=== PATIENT | female | born 2000 | race American Indian/Alaskan Native ===

== ENCOUNTER 2024-10-14 19:40 | Emergency (ER) | payer OTHER, SELFPAY ==
[~2024-10-14] VITALS: Ht 162.6 cm; Wt 71.4 kg
[2024-10-14 19:42] VITALS: BP 136/66; PULSE 115; RESP 20; TEMP 97.8; O2SAT 99
--- NOTE | 2024-10-14 20:08 | ED.PDOC ---
HPI Allergic reaction HPI Comments 24 year old female who came to ER for insect bite. 15 minutes prior to arrival, patient apparently got bitten by an ant, and she suddenly developed generalized pruritic rashes, associated with throat pain and swelling. Denies any wheezing. Chief Complaint: Insect Bite Time Seen by MD: 20:07 Reviewed Notes: Nurses Notes Home Meds Active Scripts Diphenhydramine Hcl (Benadryl Allergy) 25 Mg Cap, 1 CAP PO Q4HP PRN, #30 CAP 1 Refill Prov:ELIZABETH BUTTERFIELD MD 10/14/24 Hydrocortone (Hydrocortisone 1%) 1 Applic Ap, 1 APPLIC TOP BID PRN, #30 GRAMS Prov:ELIZABETH BUTTERFIELD MD 10/14/24 Prednisone (Prednisone) 20 Mg Tab, 20 MG PO BID for 5 Days, #10 TAB Prov:ELIZABETH BUTTERFIELD MD 10/14/24 Information Source: Patient Mode of Arrival: Ambulatory Severity: Moderate Rash: Moderate SOB: None Difficulty swallowing: Moderate Pruritus: Moderate Timing: Minutes Duration: Since onset Location: Generalized Exposed to: Animal Developed: Facial Swelling, Generalized erythema, Pruritus, Rash, Throat Swelliing Past Medical History PAST MEDICAL HISTORY: Denies Surgical History: Denies all surgeries INFORMATION SYSTEMS TECHNICIAN History: Denies all INFORMATION SYSTEMS TECHNICIAN Hx Family History Family History: Reviewed,noncontributory to illness Social History Smoker: Non-Smoker Alcohol: Denies ETOH Use Drugs: Denies Drug Use Lives In: Home Constitutional: denies: chills, diaphoresis, fatigue, fever, malaise, sweats, weakness, others EENTM: reports: throat pain, throat swelling; denies: blurred vision, double vision, ear bleeding, ear discharge, ear drainage, ear pain, ear ringing, eye pain, eye redness, hearing loss, mouth pain, mouth swelling, nasal discharge, nose bleeding, nose congestion, nose pain, photophobia, tearing, voice changes, others Respiratory: denies: cough, hemoptysis, orthopnea, SOB at rest, shortness of br eath, SOB with excertion, stridor, wheezing, others Cardiovascular: denies: chest pain, dizzy spells, diaphoresis, Dyspnea on exertion, edema, irregular heart beat, left arm pain, lightheadedness, palpitations, PND, syncope, others Gastrointestinal: denies: abdomen distended, abdominal pain, blood streaked bowels, constipated, diarrhea, dysphagia, difficulty swallowing, hematemesis, melena, nausea, poor appetite, poor fluid intake, rectal bleeding, rectal pain, vomiting, others Genitourinary: denies: abnormal vagina bleeding, burning, dyspareunia, dysuria, flank pain, frequency, hematuria, incontinence, pain, , vagina discharge, urgency, others Neurological: denies: dizziness, fainting, headache, left sided numbness, left sided weakness, numbness, paresthesia, pre-existing deficit, right sided numbness, right sided weakness, seizure, speech problems, tingling, tremors, weakness, others Musculoskeletal: denies: back pain, gout, joint pain, joint swelling, muscle pain, muscle stiffness, neck pain, others Integumetry: denies: bruises, change in color, change in hair/nails, dryness, laceration, lesions, lumps, rash, wounds, others Allergic/Immunocompromised: reports: Hives, Itching; denies: Difficulty Healing, Frequent Infections, others Hematologic/Lymphatic: denies: anemia, blood clots, easy bleeding, easy bruising, swollen glands, others Endocrine: denies: excessive hunger, excessive sweating, excessive thirst, excessive urination, flushing, intolerance to cold, intolerance to heat, unexplained weight gain, unexplained weight loss, others Psychiatric: denies: anxiety, bipolar disorder, depression, hopeless, panic disorder, schizophrenia, sleepless, suicidal, others Physical Exam General Appearance: No Apparent Distress, Normal HEENT: Normal ENT Inspection, Pharynx Normal, TMs Normal Neck: Full Range of Motion, Non-Tender, Normal, Normal Inspection Respiratory: Chest Non-Tender, Lungs Clear, No Accessory Muscle Use, No Respiratory Distress, Normal Breath Sounds Cardiovascular: No Edema, No JVD, No Murmur, No Gallop, Normal Peripheral Pulses, Regular Rate/Rhythm Breast Exam: Deferred Gastrointestinal: No Organomegaly, Non Tender, No Pulsatile Mass, Normal Bowel Sounds, Soft Genitalia: Deferred Pelvic: Deferred Rectal: Deferred Extremities: No calf tenderness, Normal capillary refill, Normal inspection, Normal range of motion, Non-tender, No pedal edema Musculoskeletal : Apperance: Normal Neurologic: Alert, district recruiter II-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 Was a procedure done?: No Differential diagnosis (all) Differential Diagnosis: Anaphylaxis, Contact Dermatitis, Urticaria X-Ray, Labs, Meds, VS Vital Signs Date Time Temp Pulse Resp B/P (MAP) Pulse Ox O2 Delivery O2 Flow Rate FiO2 10/14/24 19:42 97.8 115 20 136/66 99 97.8 Current Medications Medications (Trade) Dose Ordered Sig/Radha Route Start Time Stop Time Status Last Admin Epinephrine HCl 0.3 mg ONCE ONCE SC 10/14/24 20:15 10/14/24 20:16 DC 10/14/24 20:32 Diphenhydramine HCl (Benadryl Injection) 50 mg ONCE ONCE IM 10/14/24 20:15 10/14/24 20:16 DC 10/14/24 20:32 Famotidine (Pepcid Tablet) 40 mg ONCE ONCE PO 10/14/24 20:15 10/14/24 20:16 DC 10/14/24 20:31 Prednisone 60 mg ONCE ONCE PO 10/14/24 20:15 10/14/24 20:16 DC 10/14/24 20:31 Time of 1ST Reevaluation: 20:04 Reevaluation 1ST: Unchanged Patient Education/Counseling: Diagnosis, Treatment Family Education/Counseling: No Family Present SEPSIS Sepsis Screen Date sepsis recognized/suspect: Oct 14, 2024 Time Sepsis recognized/suspect: 1946 Recent Procedure: No On Antibiotic Therapy: No Respiratory Rate >20: No Heart Rate >90: No Temp<36 C (96.8 F) or >38.3 C: No SBP <90 or MAP <65 mmHG: No New Acute Mental Status Change: No Is the patient on CPAP, BIPAP,: No Vital Signs Date Time Temp Pulse Resp B/P (MAP) Pulse Ox O2 Delivery O2 Flow Rate FiO2 10/14/24 19:42 97.8 115 20 136/66 99 97.8 Medications Medications Dose Ordered Sig/Radha Route Start Time Stop Time Status Last Admin Dose Admin Diphenhydramine HCl 50 mg ONCE ONCE IM 10/14/24 20:15 10/14/24 20:16 DC 10/14/24 20:32 Epinephrine HCl 0.3 mg ONCE ONCE SC 10/14/24 20:15 10/14/24 20:16 DC 10/14/24 20:32 Famotidine 40 mg ONCE ONCE PO 10/14/24 20:15 10/14/24 20:16 DC 10/14/24 20:31 Prednisone 60 mg ONCE ONCE PO 10/14/24 20:15 10/14/24 20:16 DC 10/14/24 20:31 Departure 1 Departure Time of Disposition: 22:00 Impression: Primary Impression: Allergic reaction Disposition: HOME / SELF CARE / HOMELESS Condition: Stable e-Prescriptions Diphenhydramine Hcl (Benadryl Allergy) 25 Mg Cap 1 CAP PO Q4HP PRN, #30 CAP 1 Refill Prov: ELIZABETH BUTTERFIELD MD 10/14/24 Hydrocortone (Hydrocortisone 1%) 1 Applic Ap 1 APPLIC TOP BID PRN, #30 GRAMS Prov: ELIZABETH BUTTERFIELD MD 10/14/24 Prednisone (Prednisone) 20 Mg Tab 20 MG PO BID for 5 Days, #10 TAB Prov: ELIZABETH BUTTERFIELD MD 10/14/24 Discharged With: Self Critical Care Note Critical Care Time?: No Stability Stability form required: No Heart Score Heart Score: Heart Score Response (Comments) Value History N/A 0 EKG N/A 0 Age N/A 0 Risk Factors N/A 0 Troponin N/A 0 Total 0 I personally scribed for ELIZABETH BUTTERFIELD MD ([email or web address]) on 10/14/24 at 20:08. Electronically submitted by Eyal Lazaro ([email or web address]). ELIZABETH BUTTERFIELD MD Oct 14, 2024 20:08
[2024-10-14] MEDS: FAMOTIDINE 20 MG TAB PO ONE (20:31)
[2024-10-14] MEDS: predniSONE 20 MG TAB PO ONE (20:31)
[2024-10-14] MEDS: diphenhdrAMINE HCL 50 MG/1 ML VL IM ONE (20:32)
[2024-10-14] MEDS ORDERED: DIPH25CA66 PO (21:33)
[2024-10-14] MEDS ORDERED: HYD1TP TOP (21:33)
[2024-10-14] MEDS ORDERED: PRED20TA2 PO (21:33)
== END 2024-10-14 23:00 | disposition home or self-care (01) ==
LOC: ER 19:40
DX: L29.9 Pruritus, unspecified (principal); T78.40XA Allergy, unspecified, initial encounter; W57.XXXA Bitten or stung by nonvenomous insect and other nonvenomous arthropods, initial encounter
CPT/HCPCS: 96372; 99284; J0169; J1200; J7512

== ENCOUNTER 2024-11-12 15:12 | Emergency (ER) | payer SELFPAY ==
[~2024-11-12] VITALS: Ht 162.6 cm; Wt 72.4 kg
[~2024-11-12 15:12] MED LIST: DIPH25CA66 PO; HYD1TP TOP; PRED20TA2 PO
[2024-11-12 15:16] VITALS: BP 126/68; PULSE 81; RESP 18; TEMP 98.6; O2SAT 98
--- NOTE | 2024-11-12 16:01 | ED.PDOC ---
STREET SWEEPER HPI Comments A 24 YEAR OLD FEMALE PRESENTS TO THE ED WITH COMPLAINT OF VAGINAL SPOTTING DURING . PATIENT STATES SHE IS CURRENTLY ABOUT 6 WEEKS AND BEGAN TO EXPERIENCE VAGINAL SPOTTING YESTERDAY NIGHT. PATIENT NOTES HE ALSO HAS MILD PELVIC CRAMPING. PATIENT DENIES DYSURIA, HEMATURIA, VAGINAL DISCHARGE, FEVER, CHILLS, SHORTNESS OF BREATH, CHEST PAIN, ABDOMINAL PAIN, NAUSEA, VOMITING, HEADACHE, OR OTHER COMPLAINTS. NO OTHER SYMPTOMS OR MODIFYING FACTORS AT THIS TIME. PATIENT IS ALERT, ORIENTED X 4, AND HAS STEADY GAIT. Chief Complaint: Vaginal Bleed Time Seen by MD: 15:33 Reviewed Notes: Nurses Notes, Medications, Allergies Allergies: Coded Allergies: NO KNOWN ALLERGIES (Unverified , 11/12/24) Home Meds Active Scripts Diphenhydramine Hcl (Benadryl Allergy) 25 Mg Cap, 1 CAP PO Q4HP PRN, #30 CAP 1 Refill Prov:ELIZABETH BUTTERFIELD MD 10/14/24 Hydrocortone (Hydrocortisone 1%) 1 Applic Ap, 1 APPLIC TOP BID PRN, #30 GRAMS Prov:ELIZABETH BUTTERFIELD MD 10/14/24 Prednisone (Prednisone) 20 Mg Tab, 20 MG PO BID for 5 Days, #10 TAB Prov:ELIZABETH BUTTERFIELD MD 10/14/24 Information Source: Patient Mode of Arrival: Ambulatory Timing: Days Prehospital treatment: None Severity: Mild Vaginal Discharge: None Vaginal Lesions: None Bleeding Quality: Bright Red Vaginal Mass: None Onset Of Mass/Bleeding: Spontaneous Sexual Activity: Last Consensual Titanic: Unknown Control: None History of: Current Blood Type: Unknown Symptoms of Possible : None Associated Signs and Symptoms: Vaginal Bleeding Past Medical History PAST MEDICAL HISTORY: Denies Surgical History: Denies all surgeries 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: 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 all ROCKET PROPELLANT PLANT SUPERVISOR Hx Family History Family History: Reviewed,noncontributory to illness Social History Smoker: Non-Smoker Alcohol: Denies ETOH Use Drugs: Denies Drug Use Lives In: Home Constitutional: denies: chills, diaphoresis, fatigue, fever, malaise, sweats, weakness, others EENTM: denies: blurred vision, double vision, ear bleeding, ear discharge, ear drainage, ear pain, ear ringing, eye pain, eye redness, hearing loss, mouth pain, mouth swelling, nasal discharge, nose bleeding, nose congestion, nose pain, photophobia, tearing, throat pain, throat swelling, voice changes, others Respiratory: denies: cough, hemoptysis, orthopnea, SOB at rest, shortness of breath, SOB with excertion, stridor, wheezing, others Cardiovascular: denies: chest pain, dizzy spells, diaphoresis, Dyspnea on exertion, edema, irregular heart beat, left arm pain, lightheadedness, palpitations, PND, syncope, others Gastrointestinal: denies: abdomen distended, abdominal pain, blood streaked bowels, constipated, diarrhea, dysphagia, difficulty swallowing, hematemesis, melena, nausea, poor appetite, poor fluid intake, rectal bleeding, rectal pain, vomiting, others Genitourinary: reports: abnormal vagina bleeding (VAGINAL SPOTTING), pain (PELVIC CRAMPING), ; denies: burning, dyspareunia, dysuria, flank pain, frequency, hematuria, incontinence, vagina discharge, urgency, others Neurological: denies: dizziness, fainting, headache, left sided numbness, left sided weakness, numbness, paresthesia, pre-existing deficit, right sided numbness, right sided weakness, seizure, speech problems, tingling, tremors, weakness, others Musculoskeletal: denies: back pain, gout, joint pain, joint swelling, muscle pain, muscle stiffness, neck pain, others Integumetry: denies: bruises, change in color, change in hair/nails, dryness, laceration, lesions, lumps, rash, wounds, others Allergic/Immunocompromised: denies: Difficulty Healing, Frequent Infections, Hives, Itching, others Hematologic/Lymphatic: denies: anemia, blood clots, easy bleeding, easy bruising, swollen glands, others Endocrine: denies: excessive hunger, excessive sweating, excessive thirst, excessive urination, flushing, intolerance to cold, intolerance to heat, unexplained weight gain, unexplained weight loss, others Psychiatric: denies: anxiety, bipolar disorder, depression, hopeless, panic disorder, schizophrenia, sleepless, suicidal, others All Other Systems: Reviewed and Negative Physical Exam General Appearance: No Apparent Distress, Normal HEENT: Normal ENT Inspection, PERRL/EOMI, Pharynx Normal, TMs Normal Neck: Full Range of Motion, Non-Tender, Normal, Normal Inspection Respiratory: Chest Non-Tender, Lungs Clear, No Accessory Muscle Use, No Respiratory Distress, Normal Breath Sounds Cardiovascular: No Edema, No JVD, No Murmur, No Gallop, Normal Peripheral Puls es, Regular Rate/Rhythm Breast Exam: Deferred Gastrointestinal: No Organomegaly, Non Tender, No Pulsatile Mass, Normal Bowel Sounds, Soft Genitalia: Deferred Pelvic: Normal External Exam, Other (VAGINAL SPOTTING, NO VAGINAL BLEEDING AND BLOOD CLOTS. 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 Was a procedure done?: No Differential Diagnosis (ROCKET PROPELLANT PLANT SUPERVISOR) Vaginal Bleeding: - Incomplete, - Threatened, Ectopic , UTI, Vaginitis Mass / Lesion: N/A Vaginal Discharge: N/A X-Ray, Labs, Meds, VS Vital Signs Date Time Temp Pulse Resp B/P (MAP) Pulse Ox O2 Delivery O2 Flow Rate FiO2 11/12/24 15:16 98.6 81 18 126/68 98 98.6 Lab Test 11/12/24 15:55 11/12/24 15:53 Range/Units White Blood Count 10.9 H 4.4-10.8 10^3/uL Red Blood Count 4.46 4.0-5.20 10^6/uL Hemoglobin 13.4 12.2-16.2 g/dL Hematocrit 39.2 36.0-46.0 % Mean Corpuscular Volume 87.8 80.0-100.0 fL Mean Corpuscular Hemoglobin 29.9 28.0-32.0 pg Mean Corpuscular Hemoglobin Concent 34.1 32.0-36.0 g/dL Red Cell Distribution Width 13.1 11.8-14.3 % Platelet Count 337 140-450 10^3/uL Mean Platelet Volume 7.2 6.9-10.8 fL Neutrophils (%) (Auto) 72.6 37.0-80.0 % Lymphocytes (%) (Auto) 19.2 10.0-50.0 % Monocytes (%) (Auto) 6.5 0.0-12.0 % Eosinophils (%) (Auto) 1.5 0.0-7.0 % Basophils (%) (Auto) 0.2 0.0-2.0 % Neutrophils # (Auto) 7.9 1.6-8.6 10 ^3/uL Lymphocytes # (Auto) 2.1 0.4-5.4 10 ^3/uL Monocytes # (Auto) 0.7 0-1.3 10 ^3/uL Eosinophils # (Auto) 0.2 0-0.8 10 ^3/uL Basophils # (Auto) 0 0-0.2 10 ^3/uL Nucleated Red Blood Cells 0.1 % Beta HCG, Quantitative 96471.6 H 1.5-4.2 mIU/mL Urine Color Light-yellow Yellow Urine Clarity Clear Clear Urine pH 6.0 5.0-9.0 Urine Specific [place] 1.024 1.001-1.035 Urine Protein Negative Negative Urine Ketones Negative Negative Urine Blood 2+ H Negative /uL Urine Nitrite Negative Negative Urine Bilirubin Negative Negative Urine Urobilinogen Normal Negative mg/dL Urine Leukocyte Esterase Negative Negative /uL Urine RBC 13 0 - 4 /hpf Urine Microscopic WBC 2 0-5 /HPF Urine Squamous Epithelial Cells Few <5 /hpf Urine Bacteria None seen None Seen /hpf Urine Mucus Few None Seen Urine Glucose Normal Normal mg/dL PATIENT: SALBADOR GARCIAACCT: [id number]: [id number] : 2000 LOC: ER ROOM / BED: / AGE / SEX: 24 / F ADM STATUS: [facility] ER SERVICE [id number] ORDERING PHYSICIAN: BOOGIE TINEO PROCEDURE(s): OB4US - OB ULTRASOUND COMP LESS 14WKS REASON: VAGINAL SPOTTING, 6 WEEKS ORDER NUMBER(s): [id number], ACCESSION NUMBER(s): [id number] INDICATION: VAGINAL SPOTTING, 6 WEEKS TECHNIQUE: Multiple real-time grayscale transabdominal transvaginal sonographic images along with color and duplex Doppler of the uterus and ovaries were obtained. COMPARISON: None FINDINGS: The uterus measures 9.8 x 5.6 x 7 cm. The endometrial stripe endometrial canal contains a gestational sac and pole.. The right ovary measures 3.3 x 2.2 x 2.6 cm. There is an anechoic mass in the right ovary measuring 1.6 x 1.7 x 1.9 cm likely a follicle. The left ovary measures 2.6 x 1.2 by 2 cm. Volume of the left ovary is 3.2 cc. Subsequent color and duplex Doppler interrogation of the ovaries demonstrated symmetric vascular flow to both ovaries, though this does not exclude the possibility of torsion due to the dual blood supply. Gestational sac: 2.3 cm consistent with 7 weeks 0 days. Yolk sac is visualized. [place]-rump length 0.74 cm consistent with 6 weeks 4 days. heart rate 134 beats per minute JAYNE 07/02/2025. IMPRESSION: 1. 6.6 cm intrauterine ; JAYNE 07/02/2025 2. FHR: 134 beats per minute 3. Luteal cyst right ovary ATED BY: CLINT MUÑOZ Jr., DO DICTATED DATE/TIME: 11/12/241725 SIGNED BY: CLINT MUÑOZ Jr., SIGNED DATE/TIME: 11/12/241725 CC: X-Ray, Labs, Meds, VS Comment EXTERNAL MEDICAL RECORDS REVIEWED: [NONE] INDEPENDENT HISTORIANS: [NONE] SOCIAL DETERMINANTS OF HEALTH: [NONE] LABS ORDERED: CBC, UA, URINE , BETA HCG QUANT REVIEWED AND INTERPRETED RESULTS: BLOOD 2+, BHCG QUANT 98,259.6 IMAGING ORDERED: US OB < 14 WKS: [INTERPRETED BY U.S. TECH. SINGLE LIVE IUP VISUALIZED MEASURING 6 WEEKS AND 6 DAYS. FHR OF 134 BEATS PER MINUTE. NO ABNORMALITY SEEN AT THIS TIME. PENDING RADIOLOGY REVIEW.] TREATMENTS ORDERED: NONE PROCEDURES PERFORMED: NONE CRITICAL CARE TIME: NONE I HAVE DISCUSSED THE PATIENT WITH THE ATTENDING PHYSICIAN DR. BRO AND HE AGREES WITH THE PATIENT'S PLAN OF CARE AND DISPOSITION. BASED ON HISTORY OF PRESENT ILLNESS, AND PHYSICAL EXAM, PATIENT WILL BE DISCHARGED HOME. SHARED DECISION MAKING: DISCUSSED WITH PATIENT THAT THEIR WORKUP WAS NORMAL. PATIENT INSTRUCTED TO FOLLOW UP WITH PRIMARY CARE PROVIDER IN 1-2 DAYS FOR RE- EVALUATION OF SYMPTOMS. PATIENT VERBALIZES UNDERSTANDING TO RETURN TO ED FOR NEW OR WORSENING SYMPTOMS OR IF FOLLOW UP WITH PCP CANNOT BE OBTAINED. PATIENT FEELS COMFORTABLE GOING HOME AT THIS TIME. ALL QUESTIONS ADDRESSED AT TIME OF DISCHARGE. Images Reviewed?: Images reviewed and evaluated by me Time of 1ST Reevaluation: 17:20 Reevaluation 1ST: Improved Patient Education/Counseling: Diagnosis, Treatment, Need For Follow Up Family Education/Counseling: Diagnosis, Treatment, Need For Follow Up Medical Screening: No EMC Exist At This Time Departure 1 Departure Time of Disposition: 17:20 Impression: Primary Impression: Vaginal spotting Additional Impression: Threatened in first trimester Disposition: 01 HOME / SELF CARE / HOMELESS Condition: Stable Additional Instructions: FOLLOW-UP WITH PCP AND STREET SWEEPER IN 1 TO 2 DAYS. TAKE MEDICATIONS PRESCRIBED. RETURN TO ED FOR ANY NEW OR WORSENING SYMPTOMS. Discharged With: Self Critical Care Note Critical Care Time?: No Stability Stability form required: No I personally scribed for BOOGIE TINEO ([email or web address]) on 11/12/24 at 16:01. Electronically submitted by Parker Ty ([email or web address]). I personally scribed for BOOGIE TINEO ([email or web address]) on 11/12/24 at 17:10. Electronically submitted by Parker Ty ([email or web address]). BOOGIE TINEO Nov 12, 2024 16:01
[2024-11-12 16:04] LABS: Urine Protein, UAD Negative (Negative)
[2024-11-12 16:07] LABS: Hematocrit 39.2 % (36.0-46.0); Hemoglobin 13.4 g/dL (12.2-16.2); Mean Corpuscular Hemoglobin 29.9 pg (28.0-32.0); Mean Corpuscular Volume 87.8 fL (80.0-100.0); Nucleated Red Blood Cells % 0.1 %
--- NOTE | 2024-11-12 17:28 | DVH ---
INDICATION: VAGINAL SPOTTING, 6 WEEKS TECHNIQUE: Multiple real-time grayscale transabdominal transvaginal sonographic images along with col or and duplex Doppler of the uterus and ovaries were obtained. COMPARISON: None FINDINGS: The uterus measures 9.8 x 5.6 x 7 cm. The endometrial stripe endometrial canal contains a g estational sac and pole.. The right ovary measures 3.3 x 2.2 x 2.6 cm. There is an anechoic mass in the right ovary measuring 1 .6 x 1.7 x 1.9 cm likely a follicle. The left ovary measures 2.6 x 1.2 by 2 cm. Volume of the left ovary is 3.2 cc. Subsequent color and duplex Doppler interrogation of the ovaries demonstrated symmetric vascular flow to both ovaries, though this does not exclude the possibility of torsion due to the dual blood suppl y. Gestational sac: 2.3 cm consistent with 7 weeks 0 days. Yolk sac is visualized. [place]-rump length 0.74 cm consistent with 6 weeks 4 days. heart rate 134 beats per minute JAYNE 07/02/2025. IMPRESSION: 1. 6.6 cm intrauterine ; JAYNE 07/02/2025 2. FHR: 134 beats per minute 3. Luteal cyst right ovary
== END 2024-11-12 17:28 | disposition home or self-care (01) ==
LOC: ER 15:21
DX: O20.0 Threatened abortion (principal); Z3A.01 Less than 8 weeks gestation of pregnancy
CPT/HCPCS: 36415; 76801; 76817; 81001; 84702; 85025

== ENCOUNTER 2024-12-06 18:47 | Emergency (ER) | payer SELFPAY ==
[~2024-12-06] VITALS: Ht 160 cm; Wt 70.0 kg
[2024-12-06 19:21] LABS: Hematocrit 38.7 % (36.0-46.0); Hemoglobin 13.3 g/dL (12.2-16.2); Mean Corpuscular Hemoglobin 29.5 pg (28.0-32.0); Mean Corpuscular Volume 86.0 fL (80.0-100.0); Nucleated Red Blood Cells % 0.0 %
[2024-12-06 19:23] LABS: Chloride 105 mmol/L (98-107); Potassium 3.9 mmol/L (3.5-5.1); Sodium 138 mmol/L (136-145)
[2024-12-06 19:24] LABS: Anion Gap 9 (5-15); Calcium 9.4 mg/dL (8.7-10.4); Carbon Dioxide 24 mmol/L (20-31)
[2024-12-06 19:29] LABS: BUN/Creatinine Ratio 10.9 (10.0-20.0); Glucose 78 mg/dL (74-106)
[2024-12-06 19:34] LABS: Blood Urea Nitrogen 6 mg/dL (9-23)
--- NOTE | 2024-12-06 19:46 | DVH ---
CLINICAL HISTORY: Vaginal Bleeding during TECHNIQUE: Ultrasound examination of the female pelvis was performed transabdominally. COMPARISON: US OB ULTRASOUND COMP LESS 14WKS on DOS: 11/12/24, US OB TRANS VAGINAL US on DOS: 11/12/24 FINDINGS: The uterus measures 13.5 x 5.4 x 8.6 CM. The myometrial echotexture is homogenous. No focal myometri al abnormality is seen. There is a single live intrauterine with a crown-rump length of 4.1 cm, which correlates wi th gestational age of 11 weeks 0 days. The heart rate is 166 beats per minute. The sac shape a ppears appropriate as is the admitted with fluid volume visually. Is a 1.6 cm subchorionic bleed. The right ovary measures 3.1 x 1.9 x 2.2 cm. The left ovary measures 3.8 x 1.9 x 3.2 cm. Normal color doppler flow and vascular waveforms. There is no free fluid. IMPRESSION: Single alive intrauterine dated at 11 weeks 0 days by current ultrasound biometry. 1.6 cm subchorionic bleed.
--- NOTE | 2024-12-06 19:50 | ED.PDOC ---
History of Present Illness HPI Comments 24 y/o F presents with c/c of abnormal vaginal bleeding with associated mild abdominal cramping. Patient reports on being 10x weeks , with her first , currently ([id number]) and first upcoming [facility] appointment in December 2024. She states on spotting bleeding onset when using the bathroom, earlier, today, and describes it being bright red and, slightly, heavier than a regular period. No endorsed recent injuries, sexual intercourse, or further pertinent history or events. Denies on having any nausea, vomiting, urinary problems, lightheadedness, or further acute symptoms. REVIEW OF SYSTEMS: General: No fever, no chills, or fatigue HEENT: No sore throat, no earache, no congestion, no neck pain. Cardiac: No chest pain. No palpitations. Lungs: No shortness of breath, no cough. GI: Abdominal pain. No nausea, no vomiting, no diarrhea, no constipation : Abnormal vaginal bleeding. No dysuria, frequency, or urgency. No hematuria. Musculoskeletal: No joint pain , no joint swelling, no extremity edema. Skin: No rash, no itching. Neuro: No headache, no dizziness, no weakness PHYSICAL EXAM: General: Awake, alert and oriented. No acute distress. Skin: Skin in warm, dry and intact. Appropriate color for ethnicity. HEENT: The head is normocephalic and atraumatic. Conjunctivae are clear without exudates or hemorrhage. Sclera is non-icteric. EOM are intact. No signs of nystagmus. Eyelids are normal in appearance without swelling or lesions. Oral mucosa is pink and moist Neck: The neck is supple with normal range of motion. No JVD. Cardiac: Heart rate and rhythm are normal. No murmurs, gallops, or rubs are auscultated. Respiratory: No signs of respiratory distress. Lung sounds are clear in all lobes bilaterally without rales, rhonchi, or wheezes. Abdominal: Mild suprapubic abdominal tenderness. Remaining abdomen is soft, non-tender without distention, guarding or rigidity. Bowel sounds are present and normoactive in all four quadrants. Extremities: Upper and lower extremities are atraumatic in appearance without deformity or edema. Neurological: The patient is awake, alert and oriented to person, place, and time with normal speech. Speech is clear. There is no facial asymmetry. Psychiatric: Appropriate mood and affect. Good judgement and insight. Chief Complaint: Vaginal Bleed Time Seen by MD: 18:59 Reviewed Notes: Nurses Notes, Medications, Allergies Allergies: Coded Allergies: NO KNOWN ALLERGIES (Unverified , 11/12/24) Home Meds Active Scripts Diphenhydramine Hcl (Benadryl Allergy) 25 Mg Cap, 1 CAP PO Q4HP PRN, #30 CAP 1 Refill Prov:ELIZABETH BUTTERFIELD MD 10/14/24 Hydrocortone (Hydrocortisone 1%) 1 Applic Ap, 1 APPLIC TOP BID PRN, #30 GRAMS Prov:ELIZABETH BUTTERFIELD MD 10/14/24 Prednisone (Prednisone) 20 Mg Tab, 20 MG PO BID for 5 Days, #10 TAB Prov:ELIZABETH BUTTERFIELD MD 10/14/24 Information Source: Patient Mode of Arrival: Ambulatory Severity: Moderate Timing: Hours Duration: Since onset Prehospital treatment: None Past Medical History PAST MEDICAL HISTORY: Denies Surgical History: Denies all surgeries DIRECTOR OF CLAIMS History: Denies all DIRECTOR OF CLAIMS Hx Family History Family History: Reviewed,noncontributory to illness Social History Smoker: Non-Smoker Alcohol: Denies ETOH Use Drugs: Denies Drug Use Lives In: Home Was a procedure done? Was a procedure done?: No Differential Dx Considerations may include: Differential diagnoses considered include but are not limited to threatened , incomplete , missed , ectopic , ruptured ectopic , urinary tract infection, subchorionic hemorrhage, abnormal uterine bleeding, STI, trauma, vaginitis, other. X-Ray, Labs, Meds, VS Vital Signs Date Time Temp Pulse Resp B/P (MAP) Pulse Ox O2 Delivery O2 Flow Rate FiO2 12/06/24 21:20 Room Air* 0 21 12/06/24 21:19 97.7 78 12 123/77 (92) 98 97.7 12/06/24 18:48 98.7 97 18 132/79 97 98.7 Lab Test 12/06/24 20:20 12/06/24 19:05 Range/Units Urine Color Colorless Yellow Urine Clarity Clear Clear Urine pH 7.5 5.0-9.0 Urine Specific [place] 1.006 1.001-1.035 Urine Protein Negative Negative Urine Ketones Negative Negative Urine Blood Negative Negative /uL Urine Nitrite Negative Negative Urine Bilirubin Negative Negative Urine Urobilinogen Normal Negative mg/dL Urine Leukocyte Esterase Negative Negative /uL Urine RBC 1 0 - 4 /hpf Urine Microscopic WBC < 1 0-5 /HPF Urine Squamous Epithelial Cells Few <5 /hpf Urine Bacteria None seen None Seen /hpf Urine Glucose Normal Normal mg/dL Urine Test Positive Negative Chlamydia trachomatis ([facility]) Pending Neisseria gonorrhoeae ([facility]) Pending White Blood Count 11.0 H 4.4-10.8 10^3/uL Red Blood Count 4.51 4.0-5.20 10^6/uL Hemoglobin 13.3 12.2-16.2 g/dL Hematocrit 38.7 36.0-46.0 % Mean Corpuscular Volume 86.0 80.0-100.0 fL Mean Corpuscular Hemoglobin 29.5 28.0-32.0 pg Mean Corpuscular Hemoglobin Concent 34.3 32.0-36.0 g/dL Red Cell Distribution Width 13.1 11.8-14.3 % Platelet Count 321 140-450 10^3/uL Mean Platelet Volume 7.7 6.9-10.8 fL Neutrophils (%) (Auto) 72.3 37.0-80.0 % Lymphocytes (%) (Auto) 19.9 10.0-50.0 % Monocytes (%) (Auto) 6.0 0.0-12.0 % Eosinophils (%) (Auto) 1.5 0.0-7.0 % Basophils (%) (Auto) 0.3 0.0-2.0 % Neutrophils # (Auto) 7.9 1.6-8.6 10 ^3/uL Lymphocytes # (Auto) 2.2 0.4-5.4 10 ^3/uL Monocytes # (Auto) 0.7 0-1.3 10 ^3/uL Eosinophils # (Auto) 0.2 0-0.8 10 ^3/uL Basophils # (Auto) 0 0-0.2 10 ^3/uL Nucleated Red Blood Cells 0.0 % Sodium Level 138 136-145 mmol/L Potassium Level 3.9 3.5-5.1 mmol/L Chloride Level 105 98-107 mmol/L Carbon Dioxide Level 24 20-31 mmol/L Anion Gap 9 5-15 Blood Urea Nitrogen 6 L 9-23 mg/dL Creatinine 0.55 0.550-1.02 mg/dL Glomerular Filtration Rate Calc 131 >90 mL/min BUN/Creatinine Ratio 10.9 10.0-20.0 Serum Glucose 78 74-106 mg/dL Calcium Level 9.4 8.7-10.4 mg/dL ORDERING PHYSICIAN: DIONNE BROWN MD PROCEDURE(s): OB4US - OB ULTRASOUND COMP LESS 14WKS REASON: Vaginal Bleeding during ORDER NUMBER(s): [id number], ACCESSION NUMBER(s): [id number] CLINICAL HISTORY: Vaginal Bleeding during TECHNIQUE: Ultrasound examination of the female pelvis was performed transabdominally. COMPARISON: US OB ULTRASOUND COMP LESS 14WKS on DOS: 11/12/24, US OB TRANS VAGINAL US on DOS: 11/12/24 FINDINGS: The uterus measures 13.5 x 5.4 x 8.6 CM. The myometrial echotexture is homogenous. No focal myometrial abnormality is seen. There is a single live intrauterine with a crown-rump length of 4.1 cm, which correlates with gestational age of 11 weeks 0 days. The heart rate is 166 beats per minute. The sac shape appears appropriate as is the admitted with fluid volume visually. Is a 1.6 cm subchorionic bleed. The right ovary measures 3.1 x 1.9 x 2.2 cm. The left ovary measures 3.8 x 1.9 x 3.2 cm. Normal color doppler flow and vascular waveforms. There is no free fluid. IMPRESSION: Single alive intrauterine dated at 11 weeks 0 days by current u ltrasound biometry. 1.6 cm subchorionic bleed. Time of 1ST Reevaluation: 19:19 Reevaluation 1ST: Unchanged Patient Education/Counseling: Treatment, Need For Follow Up Family Education/Counseling: No Family Present SEPSIS Sepsis Screen Date sepsis recognized/suspect: Dec 06, 2024 Time Sepsis recognized/suspect: 1847 Recent Procedure: No On Antibiotic Therapy: No Respiratory Rate >20: No Heart Rate >90: No Temp<36 C (96.8 F) or >38.3 C: No SBP <90 or MAP <65 mmHG: No New Acute Mental Status Change: No Is the patient on CPAP, BIPAP,: No Physician Orders Chlamydia/Gc Amplification (12/06/24 19:00) Ob Ultrasound Comp Less 14wks (12/06/24 19:00) Vital Signs Date Time Temp Pulse Resp B/P (MAP) Pulse Ox O2 Delivery O2 Flow Rate FiO2 12/06/24 21:20 Room Air* 0 21 12/06/24 21:19 97.7 78 12 123/77 (92) 98 97.7 12/06/24 18:48 98.7 97 18 132/79 97 98.7 Laboratory Tests Test 12/06/24 19:05 White Blood Count 11.0 10^3/uL (4.4-10.8) H Departure 1 Departure Time of Disposition: 20:12 Impression: Primary Impression: Vaginal bleeding during Additional Impression: Subchorionic hemorrhage Disposition: HOME / SELF CARE / HOMELESS Condition: Stable Additional Instructions: ED DISCHARGE INSTRUCTIONS Instructions: Please read all instructions provided in this packet carefully. Although you have been discharged from the Emergency Department, this does not mean that you have a "clean bill of health". []No definitive diagnosis for your symptoms has been made today. It is possible that you are in the process of developing a serious illness. This is why you must return to the ED without fail if any new or worsening symptoms (especially if your symptoms include chest pain, trouble breathing, abdominal pain, fever, headache, confusion, trouble seeing, or trouble walking) It is also very important that you see a primary care provider (PCP) within the next 3-5 days to follow up. Follow up with the agency appointments supervisor within 1-3 days. You will need repeat ultrasound. A copy of your ultrasound report is included below. Please take this to your next appointment If you are unable to get an appointment, return to the ED for re-evaluation. Subchorionic Hemorrhage A subchorionic hematoma or hemorrhage is bleeding between the wall of the uterus and one of the sacs (chorion) that surrounds the embryo inside the uterus. It is a common cause of bleeding in early . The main symptom is vaginal bleeding. But some people don't have symptoms. They may find out they have a hematoma during an ultrasound test. In most cases, the bleeding goes away on its own. Most people go on to have a healthy baby. But in some cases, the bleeding is a sign of a miscarriage or other problem with the . Your doctor may want to do a follow-up ultrasound. Overview It's common to have some vaginal spotting when you are . In some cases, the bleeding isn't serious. And there aren't any more problems with the . But sometimes bleeding is a sign of a more serious problem. This is more common if the bleeding is heavy or painful. Examples of more serious problems include miscarriage, an ectopic , and a problem with the placenta. You may have to see your doctor again to be sure everything is okay. You may also need more tests to find the cause of the bleeding. Home treatment may be all you need. But it depends on what is causing the bleeding. Be sure to tell your doctor if you have any new symptoms or if your symptoms get worse. The doctor has checked you carefully, but problems can develop later. If you notice any problems or new symptoms, get medical treatment right away. Follow-up care is a reyes part of your treatment and safety. Be sure to make and go to all appointments, and call your doctor if you are having problems. It's also a good idea to know your test results and keep a list of the medicines you take. How can you care for yourself at home? If your doctor prescribed medicines, take them exactly as directed. Call your doctor if you think you are having a problem with your medicine. Do not have vaginal sex until your doctor says it's okay. Do not put anything in your vagina until your doctor says it's okay. Ask your doctor about other activities you can or can't do. Get a lot of rest. Being can make you tired. Do not use nonsteroidal anti-inflammatory drugs (NSAIDs), such as ibuprofen (Advil, Motrin), naproxen (Aleve), or aspirin, unless your doctor says it is okay. When should you call for help? Call 911 anytime you think you may need emergency care. For example, call if: You passed out (lost consciousness). You have severe vaginal bleeding. This means you are soaking through a pad each hour for 2 or more hours. You have sudden, severe pain in your belly or pelvis. Call your doctor now or seek immediate medical care if: You have new or worse vaginal bleeding. You are dizzy or lightheaded, or you feel like you may faint. You have pain in your belly, pelvis, or lower back. You think that you are in labor. You have a sudden release of fluid from your vagina. You've been having regular contractions for an hour. This means that you've had at least 8 contractions within 1 hour or at least 4 contractions within 20 minutes, even after you change your position and drink fluids. You notice that your baby has stopped moving or is moving much less than normal. Watch closely for changes in your health, and be sure to contact your doctor if you have any problems. CLINICAL HISTORY: Vaginal Bleeding during TECHNIQUE: Ultrasound examination of the female pelvis was performed transabdominally. COMPARISON: US OB ULTRASOUND COMP LESS 14WKS on DOS: 11/12/24, US OB TRANS VAGINAL US on DOS: 11/12/24 FINDINGS: The uterus measures 13.5 x 5.4 x 8.6 CM. The myometrial echotexture is homogenous. No focal myometrial abnormality is seen. There is a single live intrauterine with a crown-rump length of 4.1 cm, which correlates with gestational age of 11 weeks 0 days. The heart rate is 166 beats per minute. The sac shape appears appropriate as is the ad mitted with fluid volume visually. Is a 1.6 cm subchorionic bleed. The right ovary measures 3.1 x 1.9 x 2.2 cm. The left ovary measures 3.8 x 1.9 x 3.2 cm. Normal color doppler flow and vascular waveforms. There is no free fluid. IMPRESSION: Single alive intrauterine dated at 11 weeks 0 days by current ultrasound biometry. 1.6 cm subchorionic bleed. Comments MDM: 25-year-old female with subchorionic bleed. Vital signs stable. Patient advised to return to the emergency department with any new, worsening or concerning symptoms. Advised to follow up primary care provider or hospital chaplain promptly. Extensive evaluation was performed in attempt to identify or rule out: (See differential diagnosis section) The following tests were ordered, and results were reviewed by me and discussed with patient: (See diagnostic results section) I reviewed and agreed with the following test results read by other providers: Obstetrics ultrasound I reviewed the following notes from the pt's past medical encounters: November 12, 2024 encounter for vaginal spotting Decision regarding hospitalization or escalation of hospital level of care: Risks and benefits of admission for further treatment of patient's condition was considered however due to patient's stable condition patient will be discharged to follow up closely or return to care for worsening of condition or inability to follow up. Critical Care Note Critical Care Time?: No Stability Stability form required: No Heart Score Heart Score: Heart Score Response (Comments) Value History N/A 0 EKG N/A 0 Age N/A 0 Risk Factors N/A 0 Troponin N/A 0 Total 0 I personally scribed for DIONNE BROWN MD ([email or web address]) on 12/06/24 at 21:02. Electronically submitted by Kervin Norton ([email or web address]). DIONNE BROWN MD Dec 06, 2024 19:50
[2024-12-06 20:36] LABS: Urine Protein, UAD Negative (Negative)
[2024-12-06 21:19] VITALS: BP 123/77; PULSE 78; RESP 12; TEMP 97.7; O2SAT 98
[2024-12-08 16:07] LABS: Chlamydia Trachomatis, NAA Negative (Negative); Neisseria gonorrhoeae, NAA Negative (Negative)
== END 2024-12-06 21:20 | disposition home or self-care (01) ==
LOC: ER 18:47
DX: O20.8 Other hemorrhage in early pregnancy (principal); O26.891 Other specified pregnancy related conditions, first trimester; R10.9 Unspecified abdominal pain; Z3A.11 11 weeks gestation of pregnancy
CPT/HCPCS: 36415; 76801; 80048; 81001; 81025; 85025; 86850; 86900; 86901